=== PATIENT | female | born 1980 | race African-American/Black ===

== ENCOUNTER 2016-10-04 17:41 | Emergency (ER) | payer SELFPAY ==
[~2016-10-04] VITALS: Ht 22.9 cm; Wt 96.8 kg
[~2016-10-04 17:41] MED LIST: DEPO150I IM; LORT7.5T3 PO
[2016-10-04 17:44] VITALS: BP 196/114; PULSE 75; RESP 16; TEMP 97.9; O2SAT 98
--- NOTE | 2016-10-04 18:16 | PD ---
Physical Exam Time Seen by Provider: 18:15 Narrative 36yo F c/o R sided chest pain and SOB on and off x 2 weeks. Patient seen in triage. VS reviewed. Patient awaiting bed placement. Data Data Last Documented VS Vital Signs Date Time Temp Pulse Resp B/P (MAP) Pulse Ox O2 Delivery O2 Flow Rate FiO2 10/04/16 17:44 97.9 75 16 196/114 (141) 98 MDM Supervised Visit with MANDA: Lesly Licea Oct 04, 2016 18:16
--- NOTE | 2016-10-04 18:56 | RADRPT ---
EXAM DATE/TIME: 10/04/2016 18:33 [facility] COMPARISON: No previous studies available for comparison. INDICATIONS : Chest pain x 2 weeks but worst today. MEDICAL HISTORY : None. SURGICAL HISTORY : None. ENCOUNTER: Initial ACUITY: 1 day PAIN SCORE: 4/10 LOCATION: Right chest FINDINGS: PA and lateral views of the chest demonstrate the lungs to be symmetrically aerated without evidence of mass, infiltrate or effusion. The cardiomediastinal contours are unremarkable. Osseous structure s are intact. CONCLUSION: Normal examination for a patient of this age. Lupillo Marie MD on October 04, 2016 at 18:54 Board Certified Radiologist. This report was verified electronically.
[2016-10-04 19:07] LABS: BLOOD, URINE NEG (NEG); COMMENT (UR) CULT NOT INDICATED; CULTURE IF INDICATED CULT NOT INDICATED; GLUCOSE,URINE NEG (NEG); KETONE, URINE NEG (NEG); MUCUS URINE FEW /lpf (OCC); NITRITE,URINE NEG (NEG); PH, URINE 6.5 (5.0-8.5); SQUAMOUS EPITHELIAL CELL URINE 3 /hpf (0-5); URINE COLOR YELLOW (YELLW/STRAW)
[2016-10-04 19:10] LABS: BASOPHIL % 0.5 % (0.0-2.0); EOSINOPHIL # 0.1 TH/MM3 (0-0.4); EOSINOPHIL % 0.9 % (0.0-4.0); HEMATOCRIT 37.4 % (35.0-46.0); HEMO FLAGS DIFF FINAL; LYMPH % 48.6 % (9.0-44.0); LYMPHOCYTE # 3.5 TH/MM3 (1.0-4.8); MEAN CELL VOLUME 94.4 FL (80.0-100.0); MEAN CORPUSCULAR HGB CONC 32.8 % (32.0-36.0); PLATELET COUNT 336 TH/MM3 (150-450); RED BLOOD COUNT 3.96 MIL/MM3 (4.00-5.30); WHITE BLOOD COUNT 7.2 TH/MM3 (4.0-11.0)
[2016-10-04 19:20] LABS: ANION GAP 5 MEQ/L (5-15); BLOOD UREA NITROGEN 11 MG/DL (7-18); CHLORIDE 109 MEQ/L (98-107); GLOMERULAR FILTRATION RATE 67 ML/MIN (>89); POTASSIUM 3.7 MEQ/L (3.5-5.1); SODIUM (NA) 139 MEQ/L (136-145)
[2016-10-04 19:21] LABS: APTT (PATIENT) 32.5 SEC (24.3-30.1); INTERNATIONAL NORMALIZED RATIO 0.9 RATIO
[2016-10-04 19:24] LABS: CREATINE KINASE 212 U/L (26-192)
[2016-10-04 19:35] LABS: CKMB 0.7 NG/ML (0.5-3.6)
[2016-10-04 19:45] VITALS: BP 174/85; PULSE 63; RESP 20; O2SAT 100
[2016-10-04] MEDS ORDERED: KETOROLAC TROMETHAMINE 30 MG/ML (IVP) VIAL IV PUSH ONE (20:00)
[2016-10-04] MEDS ORDERED: MACR100C2 PO (20:09)
[2016-10-04] MEDS ORDERED: IBUP-232 PO (20:09)
--- NOTE | 2016-10-04 20:10 | PD ---
HPI Chief Complaint: Cardiac Complaint Time Seen by Provider: 19:44 Travel History International Travel<30 days: No Contact w/Intl Traveler<30days: No Traveled to known affect area: No History of Present Illness HPI 36-year-old female presents to the emergency department for evaluation of right- sided chest pain that started 2 weeks ago and has been intermittent. She states it'll last for a few minutes when it occurs. She states it is dull and sharp. She states also states that she had shortness of breath. 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 The patient denies any left-sided chest pain. She has history of hypertension and tachycardia. She is not currently see a discharge rn. She denies any recent surgery or travel. No leg edema. No history of cancer. No history DVT or PE. She is not on control pills. Patient denies any cardiac history. PFSH Past Medical History Hypertension: Yes (TACHYCARDIA ALL DUE TO ) Tetanus Vaccination: < 5 Years Influenza Vaccination: No ?: Not : 2 Para: 2 Past Surgical History Section: Yes (X1) Social History Alcohol Use: Yes Tobacco Use: No Substance Use: No (HX OF MARIJUANA) Allergies-Medications (Allergen,Severity, Reaction): Coded Allergies: No Known Allergies (Verified Allergy, Mild, 05/23/07) Reported Meds & Prescriptions Reported Meds & Active Scripts Active Lortab 7.5/500 (Acetaminophen/Hydrocodone Bitart) Tab 1 Tab PO Q4HPRN FOR PAIN Reported Depo-Provera Contraceptive (Medroxyprogesterone Acetate) 150 Mg/Ml Susp 150 Mg IM MONTHLY Review of Systems Except as stated in HPI: all other systems reviewed are Neg Physical Exam Narrative GENERAL: Well-nourished, well-developed female patient, afebrile. SKIN: Focused skin assessment warm/dry. HEAD: Normocephalic. Atraumatic. EYES: No scleral icterus. No injection or drainage. NECK: Supple, trachea midline. No JVD or lymphadenopathy. CARDIOVASCULAR: Regular rate and rhythm without murmurs, gallops, or rubs. RESPIRATORY: Breath sounds equal bilaterally. No accessory muscle use. Lungs sounds are clear to auscultation. GASTROINTESTINAL: Abdomen soft, non-tender, nondistended. MUSCULOSKELETAL: No cyanosis, or edema. Right-sided chest wall pain is easily reproducible with palpation. BACK: Nontender without obvious deformity. No CVA tenderness. Data Data Last Documented VS Vital Signs Date Time Temp Pulse Resp B/P (MAP) Pulse Ox O2 Delivery O2 Flow Rate FiO2 10/04/16 19:45 63 20 174/85 (114) 100 Room Air 10/04/16 17:44 97.9 Orders Orders Electrocardiogram (10/04/16 18:18) Complete Blood Count With Diff (10/04/16 18:18) Basic Metabolic Panel (Bmp) (10/04/16 18:18) Ckmb (Isoenzyme) Profile (10/04/16 18:18) Troponin I (10/04/16 18:18) Iv Access Insert/Monitor (10/04/16 18:18) Ecg Monitoring (10/04/16 18:18) Oxygen Administration (10/04/16 18:18) Oximetry (10/04/16 18:18) D-Dimer (10/04/16 18:18) Act Partial Throm Time (Ptt) (10/04/16 18:18) Prothrombin Time / Inr (Pt) (10/04/16 18:18) Urinalysis - C+S If Indicated (10/04/16 18:18) Ed Urine Pregnancytest Poc (10/04/16 18:18) Chest, Pa & Lat (10/04/16 18:18) CKMB (10/04/16 18:50) CKMB% (10/04/16 18:50) Ketorolac Inj (Toradol Inj) (10/04/16 20:00) Labs Laboratory Tests Test 10/04/16 18:50 White Blood Count 7.2 TH/MM3 Red Blood Count 3.96 MIL/MM3 Hemoglobin 12.3 GM/DL Hematocrit 37.4 % Mean Corpuscular Volume 94.4 FL Mean Corpuscular Hemoglobin 31.0 PG Mean Corpuscular Hemoglobin Concent 32.8 % Red Cell Distribution Width 14.0 % Platelet Count 336 TH/MM3 Mean Platelet Volume 8.2 FL Neutrophils (%) (Auto) 42.0 % Lymphocytes (%) (Auto) 48.6 % Monocytes (%) (Auto) 8.0 % Eosinophils (%) (Auto) 0.9 % Basophils (%) (Auto) 0.5 % Neutrophils # (Auto) 3.0 TH/MM3 Lymphocytes # (Auto) 3.5 TH/MM3 Monocytes # (Auto) 0.6 TH/MM3 Eosinophils # (Auto) 0.1 TH/MM3 Basophils # (Auto) 0.0 TH/MM3 CBC Comment DIFF FINAL Differential Comment Prothrombin Time 10.0 SEC Prothromb Time International Ratio 0.9 RATIO Activated Partial Thromboplast Time 32.5 SEC D-Dimer Quantitative (PE/DVT) 0.42 MG/L FEU Urine Color YELLOW Urine Turbidity HAZY Urine pH 6.5 Urine Specific [place] 1.024 Urine Protein NEG mg/dL Urine Glucose (UA) NEG mg/dL Urine Ketones NEG mg/dL Urine Occult Blood NEG Urine Nitrite NEG Urine Bilirubin NEG Urine Urobilinogen LESS THAN 2.0 MG/DL Urine Leukocyte Esterase LARGE Urine RBC LESS THAN 1 /hpf Urine WBC 4 /hpf Urine Squamous Epithelial Cells 3 /hpf Urine Mucus FEW /lpf Microscopic Urinalysis Comment CULT NOT INDICATED Blood Urea Nitrogen 11 MG/DL Creatinine 1.12 MG/DL Random Glucose 77 MG/DL Calcium Level 8.4 MG/DL Sodium Level 139 MEQ/L Potassium Level 3.7 MEQ/L Chloride Level 109 MEQ/L Carbon Dioxide Level 25.0 MEQ/L Anion Gap 5 MEQ/L Estimat Glomerular Filtration Rate 67 ML/MIN Total Creatine Kinase 212 U/L Creatine Kinase MB 0.7 NG/ML Creatine Kinase MB % 0.3 % Troponin I LESS THAN 0.02 NG/ML MDM Medical Decision Making Medical Screen Exam Complete: Yes Emergency Medical Condition: Yes Medical Record Reviewed: Yes Interpretation(s) Last Impressions Chest X-Ray 10/04/16 5208 Signed Impressions: Service Date/Time: Tuesday, October 04, 2016 18:33 - CONCLUSION: Normal examination for a patient of this age. Lupillo Marie MD Differential Diagnosis Chest wall pain versus pleurisy versus pneumonia versus pneumothorax versus ACS versus PE Narrative Course 36-year-old female presents to the emergency department for evaluation of intermittent right-sided chest pain that has been ongoing intermittently over the past 2 weeks. EKG shows sinus rhythm, heart rate 62, no acute ST changes. CBC shows no acute abnormality. BMP shows creatinine 1.12, no acute abnormality. CK is 212. Troponin is less than 0.02. Coags are unremarkable. D-dimer is 0.42. Chest x-ray is normal. UA shows large leukocyte esterase, 4 WBC. She does state that she has some mild burning after urination. Patient is given Toradol 30 mg IV. Chest pain is easily reproducible. She does a lot of heavy lifting and has a [id number] at home. Physical and symptoms are consistent with a muscle strain, chest wall pain. She'll be discharged with a prescription for ibuprofen and Macrobid. She is instructed follow-up with her primary care physician. She is to return here for any acute worsening of symptoms. She verbalizes agreement and understanding. The patient was discharged in stable condition with instructions, including return instructions and follow up instructions. Diagnosis Primary Impression: Right-sided chest wall pain Referrals: Primary Care Physician 2 days Patient Instructions: Chest Wall Pain (ED), General Instructions Departure Forms: Tests/Procedures, Work Release Enter return to work date: Oct 07, 2016 Additional Instructions: Take ibuprofen as instructed as needed with food for pain. Take Macrobid as directed until gone. Follow-up with your primary care physician. Return to the emergency department for any acute worsening of symptoms. Med/Other Pt SpecificInfo: Prescription(s) given Scripts Nitrofurantoin Monohydrate Macrocrystals (Macrobid) 100 Mg Cap 100 MG PO BID for Infection for 7 Days, CAP 0 Refills Prov: Tiana Walker 10/04/16 Ibuprofen (Ibuprofen) 600 Mg Tab 600 MG PO TID Y for PAIN SCALE 1 TO 10, #21 TAB 0 Refills Prov: Tiana Walker 10/04/16 Disposition: 01 DISCHARGE HOME Condition: Stable Tiana Walker Oct 04, 2016 20:10
[2016-10-04] MEDS ORDERED: AMLO10 PO (20:13)
[2016-10-04 20:20] VITALS: BP 145/84
--- NOTE | 2016-10-05 16:40 | EKG ---
Date Performed: 10/04/2016 Time Performed: 18:44:23 PTAGE: 36 years EKG: Sinus rhythm NORMAL ECG NO PREVIOUS TRACING DOCTOR: Melania Obando Interpretating Date/Time 10/05/2016 16:38:12
== END 2016-10-04 20:42 | disposition home or self-care (01) ==
LOC: NEPE 17:41
DX: R07.89 Other chest pain (principal); R06.02 Shortness of breath; I10 Essential (primary) hypertension
CPT/HCPCS: 71020; 80048; 81001; 82550; 82552; 84484; 85025; 85379; 85610; 85730; 93005; 96374; 99285; J1885